=== PATIENT | female | born 1940 | race African-American/Black ===

== ENCOUNTER 2022-06-11 09:58 | Emergency (ER) | payer BC ==
[~2022-06-11] VITALS: Ht 162.6 cm; Wt 55.0 kg
[2022-06-11] MEDS ORDERED: SODIUM CHLORIDE 0.9% 500 ML IV ONE (10:30)
[2022-06-11 11:18] LABS: CHLORIDE 116 mEq/L (98-107)
[2022-06-11 12:10] VITALS: BP 185/91
[2022-06-11 12:29] LABS: BASOPHILS % 0.3 % (0.0-2.0); EOSINOPHILS % 1.7 % (0.0-5.0); HEMATOCRIT. 44.2 % (36.0-48.0); HEMOGLOBIN. 13.8 g/dL (12.0-16.0); LYMPHOCYTES % 11.1 % (20.0-50.0); MEAN CORPUSCULAR VOLUME 80.1 fL (81.0-99.0); MONOCYTES % 8.4 % (2.0-8.0); NEUTROPHILS % 78.5 % (40.0-76.0); PLATELET 148 x1000/uL (130-400); RED BLOOD CELL COUNT 5.51 mill/uL (4.2-5.4)
== END 2022-06-11 13:07 | disposition home or self-care (01) ==
LOC: ER 09:58 → CANBEDREQ 06-12 06:22
DX: R55 Syncope and collapse (principal); I50.9 Heart failure, unspecified; Z85.89 Personal history of malignant neoplasm of other organs and systems
CPT/HCPCS: 36415; 70450; 70486; 71045; 72125; 80053; 83880; 84484; 85025; 93005; 96360; 96361; 99285; J7040

== ENCOUNTER 2024-04-13 01:23 | Emergency (ER) | payer BC, OTHER ==
[~2024-04-13] VITALS: Ht 165.1 cm; Wt 64.0 kg
[2024-04-13 01:35] VITALS: O2SAT 100
[2024-04-13] MEDS: LIDOCAINE 5% PATCH TOP ONE (02:25)
[2024-04-13 02:48] LABS: BASOPHILS % 0.3 % (0.0-2.0); EOSINOPHILS % 2.9 % (0.0-5.0); HEMATOCRIT. 40.5 % (36.0-48.0); HEMOGLOBIN. 12.8 g/dL (12.0-16.0); MEAN CORPUSCULAR HEMOGLOBIN 25.7 pg (28.0-32.0); MEAN CORPUSCULAR HGB CONC 31.7 g/dL (31.0-37.0); MEAN CORPUSCULAR VOLUME 80.8 fL (81.0-99.0); MEAN PLATELET VOLUME 9.2 fl (7.4-10.4); MONOCYTES % 9.2 % (2.0-8.0); NEUTROPHILS % 70.6 % (40.0-76.0); PLATELET 145 x1000/uL (130-400); RED BLOOD CELL COUNT 5.01 mill/uL (4.2-5.4); RED CELL DISTRIBUTION WIDTH 14.5 % (11.6-14.6); WHITE BLOOD COUNT 7.9 x1000/uL (4.5-11.0)
[2024-04-13 02:59] LABS: CHLORIDE 103 mEq/L (98-107); POTASSIUM 2.9 mEq/L (3.5-5.1); SODIUM 139 mEq/L (136-145)
[2024-04-13 03:00] LABS: CALCIUM 10.2 mg/dL (8.7-10.4); CARBON DIOXIDE 28 mEq/L (21-32)
[2024-04-13 03:05] LABS: CREATININE 1.2 mg/dL (0.6-1.0); GLUCOSE 113 mg/dL (70-105); UREA NITROGEN BLOOD 26 mg/dL (9-23)
[2024-04-13 03:06] LABS: TROPONIN I HIGH SENSITIVITY 6 ng/L (3.0-34)
[2024-04-13] MEDS: HYDRALAZINE 20MG/ML VIAL IV ONE (04:06)
[2024-04-13 04:09] VITALS: BP 144/71; PULSE 66; RESP 16; TEMP 36.50292; O2SAT 98
[2024-04-13] MEDS ORDERED: T3 PO (04:13)
[2024-04-13] MEDS ORDERED: POTASSIUM CHLORIDE 20MEQ/PACKET PO NR (04:15)
== END 2024-04-13 03:10 | disposition home or self-care (01) ==
LOC: ER 01:23
DX: R07.89 Other chest pain (principal); E87.6 Hypokalemia; I10 Essential (primary) hypertension; Z00.00 Encounter for general adult medical examination without abnormal findings
CPT/HCPCS: 99285; 96374; 80048; 83880; 85025; 84484; 36415; 71101; 93005; J0360